=== PATIENT | male | born 1965 | race Caucasian/White ===

== ENCOUNTER → 2024-07-30 | Outpatient (REF) | payer OTHER | LOC: MRI 14:15 | PROVIDERS: ATTEND Family Medicine | DX: M25.512 Pain in left shoulder (principal); S46.912D Strain of unspecified muscle, fascia and tendon at shoulder and upper arm level, left arm, subsequent encounter; M25.612 Stiffness of left shoulder, not elsewhere classified; R29.898 Other symptoms and signs involving the musculoskeletal system; Z02.6 Encounter for examination for insurance purposes ==